=== PATIENT | male | born 1960 | race Caucasian/White ===

== ENCOUNTER 2021-05-18 14:00 | Inpatient (IN) ==
[2021-05-18] MEDS ORDERED: NYSTATIN POWDER 15GM BTL EXT STA (14:20)
[2021-05-18] MEDS ORDERED: SODIUM CHLORIDE 0.9% 1000ML 1,000 ML IV SCH (14:30)
--- NOTE | 2021-05-18 14:41 | XRay Report ---
XR chest 1V portable HISTORY: 61 years-old Male weakness acute weakness COMPARISON: None TECHNIQUE: Portable AP view of the chest FINDINGS: Cardiac silhouette is mildly enlarged. No pneumothorax, pleural effusion, airspace consolidation or o vert pulmonary edema. Degenerative changes of the shoulders and spine. IMPRESSION: No acute process. ACT 112: Negative or not required by law. The above report was generated using voice recognition software. It may contain grammatical, syntax o r spelling errors. Electronically signed by: Sean Steiner M.D. 05/18/2021 2:40 PM
[2021-05-18 15:41] LABS: Basophils # (auto) 0.04 K/uL (0-0.2); Basophils % (auto) 0.3 %; Eosinophils # (auto) 0.24 K/uL (0-0.5); Hematocrit (blood only) 43.7 % (42-52); Hemoglobin 14.5 g/dL (14.0-18.0); Immature Granulocytes # (auto) 0.03 K/uL (0.00-0.02); Immature Granulocytes % (auto) 0.2 %; Lymphocytes # (auto) 1.47 K/uL (1.2-3.4); Lymphocytes % (auto) 12.1 %; Mean Corpuscular Hgb Conc 33.2 g/dL (32-36); Mean Corpuscular Volume 90.3 fL (80-100); Mean Platelet Volume 9.1 fL (7.4-10.4); Neutrophils # (auto) 9.29 K/uL (1.4-6.5); Neutrophils % (auto) 76.4 %; Platelet Count 218 K/uL (130-400); RDW Coefficient of Variation 13.8 % (11.5-14.5); RDW Standard Deviation 45.3 fL (36.4-46.3); Red Blood Count 4.84 M/uL (4.7-6.1); White Blood Count 12.17 K/uL (4.8-10.8)
[2021-05-18 16:08] LABS: Albumin Level 3.4 gm/dl (3.4-5.0); BUN Creatinine Ratio 32.9 (10-20); Calcium 9.2 mg/dl (8.5-10.1); Creatinine Clr Calc Pharmacy 86.3 ml/min; Est GFR (African American) 109.8 ml/min; Est GFR (Non-African American) 94.7 ml/min; Magnesium 2.3 mg/dl (1.8-2.4); Potassium 4.3 mmol/L (3.5-5.1)
[2021-05-18 16:11] LABS: Albumin Globulin Ratio 0.7 (0.9-2); Bilirubin,Total 0.4 mg/dl (0.2-1); Globulin 4.9 gm/dl (2.5-4.0); Total Protein 8.3 gm/dl (6.4-8.2)
[2021-05-18] MEDS ORDERED: SODIUM CHLORIDE 0.9% 500 ML IV ONE (16:39)
[2021-05-18 17:12] LABS: Appearance Urine Cloudy (Clear); Bacteria Urine Automated 3+ (Negative); Bilirubin Urine Negative (Negative); Blood Urine 2+ (Negative); Color Urine Dark Yellow; Glucose Urine UA Negative (Negative); Ketones Urine 2+ (Negative); Leukocyte Esterase Urine 1+ (Negative); Nitrite Urine Positive (Negative); Protein Urine 2+ (Negative); RBC Urine Automated 0-4 /hpf (0-4); Specific Gravity Urine 1.031 (1.000-1.030); Urobilinogen Urine Negative (Negative); WBC Urine Automated >30 /hpf (0-5); pH Urine 5.5 (4.5-7.5)
[2021-05-18 17:41] LABS: Cast Urine Automated 0 /lpf (0-5)
[2021-05-18] MEDS ORDERED: cefTRIAXone SODIUM 1,000 MG/50 ML BAG IV STA (18:15)
[2021-05-18] MEDS ORDERED: SODIUM CHLORIDE 0.9% 1000ML 1,000 ML IV ONE (18:16)
--- NOTE | 2021-05-18 19:34 | History & Physical Report ---
Date of Service May 18, 2021 Assessment & Plan (1) UTI (urinary tract infection): Pt is 61 y/o M with PMH cerebral palsy, paroxysmal SVT, vitamin D deficiency, anemia presented to ER via EMS as found dishevelled in his home. Pt requires total care and is bed bound at baseline and his elderly father is caregiver who is acutely ill and unable to care for pt. Sister feels pt is at his baseline mental status. In ER WBC: 12, UA consistent with UTI. Normal lactate. Patient afebrile, tachy cardic 115, BP 135/85, 94% on room air In ER given 1500 mL NSS, Rocephin -Blood cultures pending -Urine cultures pending -Continue Rocephin -Gentle IVF as appears dehydrated on exam -CBC, BMP in a.m. (2) Candidal intertrigo: Rash to groin consistent with candidiasis -Nystatin powder (3) Cerebral palsy: Patient bedbound. Appears patient has not been repositioned often recently secondary to illness of his caregiver -CK pending -Bedside dysphagia screen, if fails will hold oral medication -Will have speech therapy eval to assess for any dysphagia -Rotate pt (4) Paroxysmal SVT (supraventricular tachycardia): Current sinus tachycardia rhythm -Dose Lopressor 5 mg IV now secondary to suspected missed metoprolol dose today and tachycardia with stable BP -Continue metoprolol succinate, if fails dysphagia screen plan to convert to IV Lopressor (5) Neurogenic bladder: -Continue bethanechol if passes dysphagia screen (6) Vitamin D deficiency: -Will hold vitamin D supplement for now DVT Prophylaxis -Lovenox SQ Full Code. As per discussion with pt's sister, she is not POA, Her father is. Father unable to make those decisions at this time Follows with Dr Sadler for routine care Pt was seen and care coordinated with Dr Fuller. See addendum History of Present Illness Chief Complaint: Found in house dishevelled Primary Care Provider: Dr Sadler Pt is 61 y/o M with PMH cerebral palsy, paroxysmal SVT, vitamin D deficiency, anemia presented to ER via EMS as found dishevelled in his home. History obtained from ER staff, patient's sister. Pt requires total care and is bed bound at baseline. His caregiver is his elderly father, who is also caregiver for elderly demented mother. Pt's father is acutely ill and has not been able to care for himself nor patient recently. Patient's father was being transferred via EMS and EMS had noted patient in same position, appeared disheveled and patient was transported to ER. Patient sister reports that he is on regular diet but does do better with a small bite sized soft diet. She denies any known history of choking. Reports takes medications in applesauce or pudding. She is unsure if he had medications today. She feels he is at his baseline mental status. Unable to further obtain history and ROS, FH, Surgical history secondary to patient's cognitive status. Was able to speak to patient's sister on phone however she was quick to end phone call. Patient sister reports that parents are power of corporate associate attorney over patient. In ER patient found to have excoriations and erythema to groin. WBC: 12, UA consistent with UTI. Patient afebrile, tachycardic 115, BP 135/85, 94% on room air Allergies Allergy/AdvReac Type Severity Reaction Status Date / Time No Known Allergies Allergy Unverified 05/18/21 16:19 Home Medications Medication Instructions Recorded Confirmed Type bethanechol chloride 25 mg PO AMPM 05/18/21 05/18/21 History ergocalciferol (vitamin D2) 1,250 mcg PO WK 05/18/21 05/18/21 History metoprolol succinate 50 mg PO DAILY 05/18/21 05/18/21 History trazodone 50 mg PO AMPM PRN 05/18/21 05/18/21 History Past Med/Surg History Medical History (Updated 05/18/21 @ 22:14 by Solange Ross MD) Cerebral palsy Neurogenic bladder Paroxysmal SVT (supraventricular tachycardia) Vitamin D deficiency Family History (Updated 05/18/21 @ 19:55 by Madie Acosta PA-C) Mother Dementia Social History (Updated 05/18/21 @ 19:56 by Madie Acosta PA-C) Smoking Status: Unknown if ever smoked Hx Alcohol Use: No Hx Substance Use: No Preferred Language: Mongolian Communication Ability: Unable Current Living Situation: Parent Feels Safe at Home: Yes Review of Systems Review of Systems: Unobtainable due to cognitive status Physical Exam Physical Exam: General: no apparent distress, moderately developed, moderately nourished Head: normocephalic, atraumatic Eyes: PERRL, EOM's intact, conjunctiva non-injected, + dried discharge eyes bilaterally, anicteric ENT: normal inspection external ears, nose, mucous membranes dry Neck: supple, trachea midline Lungs: Appear clear, no respiratory distress, no apparent wheezing/rhonchi/rales CV: Tachycardia at 108, regular rhythm Abd: normal BS, soft, non-tender Ext: no cyanosis, no apparent calf tenderness; bilateral lower extremities with edema Neuro: Awake, retracts to painful stimuli of lab draws, however is cooperative Skin: warm, dry, + multiple excoriations to bilateral lower extremities. + Excoriation, erythema, satellite lesions to groin Results & Data Results & Data ([facility]) Vital Signs (Past 12 Hours) Vital Signs Temp Pulse Resp BP Pulse Ox 05/18/21 18:00 105 H 22 159/93 H 92 05/18/21 17:30 105 H 17 148/87 H 93 05/18/21 17:00 105 H 16 135/88 93 05/18/21 16:30 110 H 17 125/92 93 05/18/21 16:00 109 H 20 149/95 H 93 05/18/21 15:32 109 H 19 135/98 92 05/18/21 15:05 112 H 15 161/90 H 94 05/18/21 14:25 37.2 C 117 H 18 135/85 94 05/18/21 14:19 94 05/18/21 14:06 115 H 18 135/85 Laboratory Results Short CBC 05/18/21 Range/Units 15:31 WBC 12.17 H (4.8-10.8) K/uL Hgb 14.5 (14.0-18.0) g/dL Hct 43.7 (42-52) % Plt Count 218 (130-400) K/uL BMP 05/18/21 15:31 Sodium 139 Potassium 4.3 Chloride 106 Carbon Dioxide 28 BUN 28 H Creatinine 0.85 Glucose 105 H Calcium 9.2 Liver Function 05/18/21 Range/Units 15:31 Total Bilirubin 0.4 (0.2-1) mg/dl AST 23 (15-37) U/L ALT 20 (12-78) U/L Alkaline Phosphatase 79 (45-117) U/L Albumin 3.4 (3.4-5.0) gm/dl Urine 05/18/21 Range/Units 17:00 Urine Color Dark Yellow Urine Appearance Cloudy A (Clear) Urine pH 5.5 (4.5-7.5) Ur Specific [place] 1.031 H (1.000-1.030) Urine Protein 2+ H (Negative) Urine Glucose (UA) Negative (Negative) Diagnostic Findings Chest X-Ray 05/18/21 14:19 XR chest 1V portable HISTORY: 61 years-old Male weakness acute weakness COMPARISON: None TECHNIQUE: Portable AP view of the chest FINDINGS: Cardiac silhouette is mildly enlarged. No pneumothorax, pleural effusion, airspace consolidation or overt pulmonary edema. Degenerative changes of the shoulders and spine. IMPRESSION: No acute process. ACT 112: Negative or not required by law. The above report was generated using voice recognition software. It may contain grammatical, syntax or spelling errors. Electronically signed by: Sean Steiner M.D. 05/18/2021 2:40 PM ECG Rate (beats per minute): 115 Rhythm: sinus tachycardia Supervising Physician Co-Signing Physician Notes Care coordinated with Madie Acosta PA-C. Agree with above note. Patient seen and examined. Please refer to her notes for full details. Vital signs reviewed. Physical exam: General exam: drowsy. Not in acute distress. CVS: S1 and S2 heard, regular rate and rhythm, no murmurs. RS: Clear to auscultation, no wheezing or crackles. ABD: Soft, bowel sounds present, nontender, no distention. FOREIGN STUDENT ADVISER: Drowsy. EXT: No edema, no erythema. Labs: Reviewed. Assessment and plan: 61M with hx of cerebral palsy, bed bound, father who takes care of the patinet is sick in the hospital and ems also found the patinet to be dishevelled and brought to Er. Patient is drowsy and could not get any history. Please review Madie Acosta PA-C h and p for full history. UTI on rocephin follow cultures possible cellulitis of lower extremity rocephin will follow response Hx of SVT on toprol xl Other diagnosis and plan of care as per Madie Acosta PA-C. Evans morrissey MD.
[2021-05-18] MEDS ORDERED: METOPROLOL TARTRATE 1 MG/ML VIAL IV STA (19:56)
--- NOTE | 2021-05-18 21:51 | Emergency Department Note ---
History of Present Illness General Chief complaint: Illness Stated complaint: no meds last few days Time Seen by Provider: 05/18/21 14:12 Source: family (Sister), EMS and RN notes reviewed Mode of arrival: EMS Limitations: physical limitation (Nonverbal, intellectual disability) History of Present Illness Provider complaint: Inability to care, poor living conditions Patient is a 61-year-old male who presents to the emergency department by EMS with complaints of poor living conditions. EMS was called by the patient's sister who arrived at the home after receiving a call from the neighbor. The family is male had not been collected nor have the lawn been mowed in several days, which is very unusual. The daughter found the patient's father weak and unable to get out of bed. He is the patient's primary caregiver as the patient is nonverbal and completely bedbound. Patient's sister has suspicion that he h as not had his medications in several days. Home Medications Medication Instructions Recorded Confirmed Type bethanechol chloride 25 mg PO AMPM 05/18/21 05/18/21 History ergocalciferol (vitamin D2) 1,250 mcg PO WK 05/18/21 05/18/21 History metoprolol succinate 50 mg PO DAILY 05/18/21 05/18/21 History trazodone 50 mg PO AMPM PRN 05/18/21 05/18/21 History Allergies Allergy/AdvReac Type Severity Reaction Status Date / Time No Known Allergies Allergy Unverified 05/18/21 16:19 Past Med/Surg History Medical History (Updated 05/18/21 @ 22:14 by Solange Ross MD) Cerebral palsy Neurogenic bladder Paroxysmal SVT (supraventricular tachycardia) Vitamin D deficiency Family History (Updated 05/18/21 @ 19:55 by Madie Acosta PA-C) Mother Dementia Social History (Updated 05/18/21 @ 19:56 by Madie Acosta PA-C) Smoking Status: Unknown if ever smoked Hx Alcohol Use: No Hx Substance Use: No Preferred Language: [place] Review of Systems Unobtainable due to cognitive status Physical Exam Vital Signs Vital Signs - 24 hr 05/18/21 14:06 05/18/21 14:19 05/18/21 14:25 Temperature 37.2 C Temperature Source Oral Pulse Rate 115 H 117 H Pulse Rate from SpO2 Sensor Respiratory Rate 18 18 Respiratory Effort / Characteristics Non-Labored Spontaneous Respiratory Depth Normal Respiratory Pattern Regular Blood Pressure 135/85 135/85 Blood Pressure Mean 101 101 Pulse Oximetry 94 94 Oxygen Delivery Method Room Air Room Air Sepsis Recent Fever Within 48 Hours No Sepsis New/Unexplained Change in Mental Status No Sepsis Action Taken by Nursing No Action Required 05/18/21 15:05 05/18/21 15:32 05/18/21 16:00 Temperature Temperature Source Pulse Rate 112 H 109 H 109 H Pulse Rate from SpO2 Sensor 113 H 111 H 110 H Respiratory Rate 15 19 20 Respiratory Effort / Characteristics Respiratory Depth Respiratory Pattern Blood Pressure 161/90 H 135/98 149/95 H Blood Pressure Mean 113 110 113 Pulse Oximetry 94 92 93 Oxygen Delivery Method Sepsis Recent Fever Within 48 Hours Sepsis New/Unexplained Change in Mental Status Sepsis Action Taken by Nursing 05/18/21 16:30 05/18/21 17:00 05/18/21 17:30 Temperature Temperature Source Pulse Rate 110 H 105 H 105 H Pulse Rate from SpO2 Sensor 110 H 105 H 106 H Respiratory Rate 17 16 17 Respiratory Effort / Characteristics Respiratory Depth Respiratory Pattern Blood Pressure 125/92 135/88 148/87 H Blood Pressure Mean 103 103 107 Pulse Oximetry 93 93 93 Oxygen Delivery Method Sepsis Recent Fever Within 48 Hours Sepsis New/Unexplained Change in Mental Status Sepsis Action Taken by Nursing 05/18/21 18:00 05/18/21 18:30 05/18/21 19:00 Temperature Temperature Source Pulse Rate 105 H 100 H 104 H Pulse Rate from SpO2 Sensor 106 H 100 H 101 H Respiratory Rate 22 17 13 Respiratory Effort / Characteristics Respiratory Depth Respiratory Pattern Blood Pressure 159/93 H 123/81 120/80 Blood Pressure Mean 115 95 93 Pulse Oximetry 92 95 94 Oxygen Delivery Method Sepsis Recent Fever Within 48 Hours Sepsis New/Unexplained Change in Mental Status Sepsis Action Taken by Nursing 05/18/21 19:30 05/18/21 20:00 05/18/21 20:30 Temperature Temperature Source Pulse Rate 102 H 99 H 101 H Pulse Rate from SpO2 Sensor 102 H 100 H 100 H Respiratory Rate 16 14 9 L Respiratory Effort / Characteristics Respiratory Depth Respiratory Pattern Blood Pressure 136/84 137/84 126/86 Blood Pressure Mean 101 101 99 Pulse Oximetry 95 94 93 Oxygen Delivery Method Sepsis Recent Fever Within 48 Hours Sepsis New/Unexplained Change in Mental Status Sepsis Action Taken by Nursing 05/18/21 21:15 Temperature Temperature Source Pulse Rate 100 H Pulse Rate from SpO2 Sensor Respiratory Rate Respiratory Effort / Characteristics Respiratory Depth Respiratory Pattern Blood Pressure 134/80 Blood Pressure Mean Pulse Oximetry Oxygen Delivery Method Sepsis Recent Fever Within 48 Hours Sepsis New/Unexplained Change in Mental Status Sepsis Action Taken by Nursing Vital signs reviewed. General: Chronically ill appearing 61yo male, in no significant distress. HEENT: No scleral icterus, PERRLA, neck supple. Atraumatic. Cardiovascular: Regular rate and rhythm, no extra sounds. Pulmonary: Clear to auscultation bilaterally, normal work of breathing. Abdomen: Soft, nontender, nondistended, positive bowel sounds. Musculoskeletal: Atraumatic, minimal peripheral edema. Neurologic: Patient awake alert and oriented x 3 Skin: Warm, dry, no rash Course Administered Medications Sodium Chloride (Nss 1000ml) 1,000 mls @ 125 mls/hr IV .Q8H GWEN Stop: 05/18/21 22:29 Last Infusion: 05/18/21 17:42 Dose: 0 mls/hr Documented by: [id number] Admin: 05/18/21 15:07 Dose: 125 mls/hr Documented by: [id number] Discontinued Medications Sodium Chloride (Nss) 500 mls @ 999 mls/hr IV .Q31M ONE Stop: 05/18/21 17:09 Last Infusion: 05/18/21 18:22 Dose: 0 mls/hr Documented by: [id number] Admin: 05/18/21 17:42 Dose: 999 mls/hr Documented by: [id number] Ceftriaxone Sodium (Rocephin) 1,000 mg in 50 mls @ 100 mls/hr IV NOW STA Stop: 05/18/21 18:44 Last Admin: 05/18/21 19:44 Dose: 100 mls/hr Documented by: [id number] Sodium Chloride (Nss 1000ml) 1,000 mls @ 999 mls/hr IV .Q1H1M ONE Stop: 05/18/21 19:16 Last Admin: 05/18/21 18:26 Dose: 999 mls/hr Documented by: [id number] Metoprolol Tartrate (Metoprolol Tartrate 1 Mg/Ml Vial) 5 mg IV NOW STA Stop: 05/18/21 19:57 Last Admin: 05/18/21 21:15 Dose: 5 mg Documented by: [id number] Nystatin (Nystatin Powder 15gm Btl) 1 appln EXT NOW STA Stop: 05/18/21 14:21 Last Admin: 05/18/21 16:40 Dose: 1 appln Documented by: [id number] Medical Decision Making Differential Diagnosis Infection, dehydration, metabolic abnormality, hypo/hyperglycemia, electrolyte disturbance, anemia, hypoxia, cardiac sources, intracerebral event, toxicologic, neurologic, as well as other pathologies. Medical Records Attestation: I reviewed the patient's medical records. Home Medications Current Medication List: was personally reviewed by me Laboratory Data Attestation: I reviewed the patient's lab results. Result diagrams: 05/18/21 15:31 05/18/21 15:31 Lab Results 05/18/21 05/18/21 05/18/21 Range/Units 15:31 15:31 15:31 WBC 12.17 H (4.8-10.8) K/uL RBC 4.84 (4.7-6.1) M/uL Hgb 14.5 (14.0-18.0) g/dL Hct 43.7 (42-52) % MCV 90.3 (80-100) fL MCH 30.0 (25-34) pg MCHC 33.2 (32-36) g/dL RDW Std Deviation 45.3 (36.4-46.3) fL RDW Coeff of Ther[place] 13.8 (11.5-14.5) % Plt Count 218 (130-400) K/uL MPV 9.1 (7.4-10.4) fL Immature Gran % (Auto) 0.2 % Neut % (Auto) 76.4 % Lymph % (Auto) 12.1 % [place] % (Auto) 9.0 % Eos % (Auto) 2.0 % Baso % (Auto) 0.3 % Neut # (Auto) 9.29 H (1.4-6.5) K/uL Lymph # (Auto) 1.47 (1.2-3.4) K/uL [place] # (Auto) 1.10 H (0.11-0.59) K/uL Eos # (Auto) 0.24 (0-0.5) K/uL Baso # (Auto) 0.04 (0-0.2) K/uL Immature Gran # (Auto) 0.03 H (0.00-0.02) K/uL Sodium 139 (136-145) mmol/L Potassium 4.3 (3.5-5.1) mmol/L Chloride 106 (98-107) mmol/L Carbon Dioxide 28 (21-32) mmol/L Anion Gap 5.0 (3-11) BUN 28 H (7-18) mg/dl Creatinine 0.85 (0.6-1.4) mg/dl Est Cr Clr Drug Dosing 86.3 ml/min Est GFR ( Amer) 109.8 ml/min Est GFR (Non-Af Amer) 94.7 ml/min BUN/Creatinine Ratio 32.9 H (10-20) Glucose 105 H (70-99) mg/dl Lactate 2.0 (0.4-2.0) mmol/L Calcium 9.2 (8.5-10.1) mg/dl Magnesium 2.3 (1.8-2.4) mg/dl Total Bilirubin 0.4 (0.2-1) mg/dl AST 23 (15-37) U/L ALT 20 (12-78) U/L Alkaline Phosphatase 79 (45-117) U/L Total Creatine Kinase (39-308) U/L Total Protein 8.3 H (6.4-8.2) gm/dl Albumin 3.4 (3.4-5.0) gm/dl Globulin 4.9 H (2.5-4.0) gm/dl Albumin/Globulin Ratio 0.7 L (0.9-2) Urine Color Urine Appearance (Clear) Urine pH (4.5-7.5) Ur Specific [place] (1.000-1.030) Urine Protein (Negative) Urine Glucose (UA) (Negative) Urine Ketones (Negative) Urine Blood (Negative) Urine Nitrite (Negative) Urine Bilirubin (Negative) Urine Urobilinogen (Negative) Ur Leukocyte Esterase (Negative) Urine WBC (Auto) (0-5) /hpf Urine RBC (Auto) (0-4) /hpf U Hyaline Cast (Auto) (0-5) /lpf U Epithel Cells (Auto) (0-5) /lpf Urine Bacteria (Auto) (Negative) COVID-19 Eval Order SARS-CoV-2 (PCR) (Negative) 05/18/21 05/18/21 05/18/21 Range/Units 15:31 17:00 18:06 WBC (4.8-10.8) K/uL RBC (4.7-6.1) M/uL Hgb (14.0-18.0) g/dL Hct (42-52) % MCV (80-100) fL MCH (25-34) pg MCHC (32-36) g/dL RDW Std Deviation (36.4-46.3) fL RDW Coeff of Theron (11.5-14.5) % Plt Count (130-400) K/uL MPV (7.4-10.4) fL Immature Gran % (Auto) % Neut % (Auto) % Lymph % (Auto) % [place] % (Auto) % Eos % (Auto) % Baso % (Auto) % Neut # (Auto) (1.4-6.5) K/uL Lymph # (Auto) (1.2-3.4) K/uL [place] # (Auto) (0.11-0.59) K/uL Eos # (Auto) (0-0.5) K/uL Baso # (Auto) (0-0.2) K/uL Immature Gran # (Auto) (0.00-0.02) K/uL Sodium (136-145) mmol/L Potassium (3.5-5.1) mmol/L Chloride (98-107) mmol/L Carbon Dioxide (21-32) mmol/L Anion Gap (3-11) BUN (7-18) mg/dl Creatinine (0.6-1.4) mg/dl Est Cr Clr Drug Dosing ml/min Est GFR ( Amer) ml/min Est GFR (Non-Af Amer) ml/min BUN/Creatinine Ratio (10-20) Glucose (70-99) mg/dl Lactate (0.4-2.0) mmol/L Calcium (8.5-10.1) mg/dl Magnesium (1.8-2.4) mg/dl Total Bilirubin (0.2-1) mg/dl AST (15-37) U/L ALT (12-78) U/L Alkaline Phosphatase (45-117) U/L Total Creatine Kinase 447 H (39-308) U/L Total Protein (6.4-8.2) gm/dl Albumin (3.4-5.0) gm/dl Globulin (2.5-4.0) gm/dl Albumin/Globulin Ratio (0.9-2) Urine Color Dark Yellow Urine Appearance Cloudy A (Clear) Urine pH 5.5 (4.5-7.5) Ur Specific [place] 1.031 H (1.000-1.030) Urine Protein 2+ H (Negative) Urine Glucose (UA) Negative (Negative) Urine Ketones 2+ H (Negative) Urine Blood 2+ H (Negative) Urine Nitrite Positive A (Negative) Urine Bilirubin Negative (Negative) Urine Urobilinogen Negative (Negative) Ur Leukocyte Esterase 1+ H (Negative) Urine WBC (Auto) >30 H (0-5) /hpf Urine RBC (Auto) 0-4 (0-4) /hpf U Hyaline Cast (Auto) 0 (0-5) /lpf U Epithel Cells (Auto) 10-20 H (0-5) /lpf Urine Bacteria (Auto) 3+ H (Negative) COVID-19 Eval Order Covid19 at [facility] SARS-CoV-2 (PCR) (Negative) 05/18/21 Range/Units 18:06 WBC (4.8-10.8) K/uL RBC (4.7-6.1) M/uL Hgb (14.0-18.0) g/dL Hct (42-52) % MCV (80-100) fL MCH (25-34) pg MCHC (32-36) g/dL RDW Std Deviation (36.4-46.3) fL RDW Coeff of Theron (11.5-14.5) % Plt Count (130-400) K/uL MPV (7.4-10.4) fL Immature Gran % (Auto) % Neut % (Auto) % Lymph % (Auto) % [place] % (Auto) % Eos % (Auto) % Baso % (Auto) % Neut # (Auto) (1.4-6.5) K/uL Lymph # (Auto) (1.2-3.4) K/uL [place] # (Auto) (0.11-0.59) K/uL Eos # (Auto) (0-0.5) K/uL Baso # (Auto) (0-0.2) K/uL Immature Gran # (Auto) (0.00-0.02) K/uL Sodium (136-145) mmol/L Potassium (3.5-5.1) mmol/L Chloride (98-107) mmol/L Carbon Dioxide (21-32) mmol/L Anion Gap (3-11) BUN (7-18) mg/dl Creatinine (0.6-1.4) mg/dl Est Cr Clr Drug Dosing ml/min Est GFR ( Amer) ml/min Est GFR (Non-Af Amer) ml/min BUN/Creatinine Ratio (10-20) Glucose (70-99) mg/dl Lactate (0.4-2.0) mmol/L Calcium (8.5-10.1) mg/dl Magnesium (1.8-2.4) mg/dl Total Bilirubin (0.2-1) mg/dl AST (15-37) U/L ALT (12-78) U/L Alkaline Phosphatase (45-117) U/L Total Creatine Kinase (39-308) U/L Total Protein (6.4-8.2) gm/dl Albumin (3.4-5.0) gm/dl Globulin (2.5-4.0) gm/dl Albumin/Globulin Ratio (0.9-2) Urine Color Urine Appearance (Clear) Urine pH (4.5-7.5) Ur Specific [place] (1.000-1.030) Urine Protein (Negative) Urine Glucose (UA) (Negative) Urine Ketones (Negative) Urine Blood (Negative) Urine Nitrite (Negative) Urine Bilirubin (Negative) Urine Urobilinogen (Negative) Ur Leukocyte Esterase (Negative) Urine WBC (Auto) (0-5) /hpf Urine RBC (Auto) (0-4) /hpf U Hyaline Cast (Auto) (0-5) /lpf U Epithel Cells (Auto) (0-5) /lpf Urine Bacteria (Auto) (Negative) COVID-19 Eval Order SARS-CoV-2 (PCR) NEGATIVE (Negative) Imaging Data Radiologist's Impression: Chest X-Ray 05/18/21 14:19 XR chest 1V portable HISTORY: 61 years-old Male weakness acute weakness COMPARISON: None TECHNIQUE: Portable AP view of the chest FINDINGS: Cardiac silhouette is mildly enlarged. No pneumothorax, pleural effusion, airspace consolidation or overt pulmonary edema. Degenerative changes of the shoulders and spine. IMPRESSION: No acute process. ACT 112: Negative or not required by law. The above report was generated using voice recognition software. It may contain grammatical, syntax or spelling errors. Electronically signed by: Sean Steiner M.D. 05/18/2021 2:40 PM Blood Pressure Blood Pressure Findings: Normal blood pressure Blood Pressure Disposition: Referred to patients primary care provider MDM Narrative This patient was evaluated and appeared to be in no significant distress. He is chronically debilitated and nonverbal thus history taking is difficult. IV access was obtained and laboratory work was drawn. Patient was hydrated with normal saline solution. An order for cardiac monitoring was placed and the patient is noted to be in sinus tachycardia at 117 bpm. Patient is noted to have an excoriated inguinal region with yeast dermatitis of the skin folds on the legs. UA is indicative of infection patient was medicated with IV ceftriaxone. Case management was consulted. Respite care was attempted through the office of aging however unsuccessful on this Wednesday evening. Patient meets criteria for hospitalization based on elevated WBC, dehydration and UTI. He will require further office of aging involvement and likely half-way placement after my conversation with patient's daughter. Patient's mother who suffers from dementia has been placed in respite care. Patient's father has been hospitalized for medical issues. Impression & Plan Cerebral palsy, UTI (urinary tract infection), Candidal intertrigo Discharge Plan Visit Data Chief Complaint: Illness Stated Complaint: no meds last few days ED Provider: Solange Ross Discharge Problem: Cerebral palsy, UTI (urinary tract infection), Candidal intertrigo Forms Stand Alone Forms: [employer] Prescriptions Prescriptions: No Action trazodone 50 mg tablet 50 mg PO AMPM PRN (Reason: Sleep) RF: 0 metoprolol succinate 50 mg tablet extended release 24 hr 50 mg PO DAILY RF: 0 bethanechol chloride 25 mg tablet 25 mg PO AMPM RF: 0 ergocalciferol (vitamin D2) 1,250 mcg (50,000 unit) capsule 1,250 mcg PO WK RF: 0 Discharge Problem: Cerebral palsy Qualifiers: Cerebral palsy type: unspecified type Qualified Code(s): G80.9 - Cerebral palsy, unspecified UTI (urinary tract infection) Qualifiers: Urinary tract infection type: acute cystitis Hematuria presence: without hematuria Qualified Code(s): N30.00 - Acute cystitis without hematuria
[2021-05-19] MEDS ORDERED: NYSTATIN POWDER 15GM BTL EXT PRN (00:47)
[2021-05-19] MEDS ORDERED: traZODone HCL 50 MG TAB PO PRN (00:47)
[2021-05-19] MEDS ORDERED: ACETAMINOPHEN 325 MG TAB PO PRN (00:47)
[2021-05-19] MEDS ORDERED: SODIUM CHLORIDE 0.9% 1000ML 1,000 ML IV SCH (00:47)
[2021-05-19] MEDS: BETHANECHOL CHL 25 MG TAB PO SCH ×3 (01:35→21:56)
[2021-05-19] MEDS: ENOXAPARIN INJ 40 MG/0.4 ML SYR SQ SCH (06:27)
[2021-05-19 07:39] LABS: Basophils # (auto) 0.04 K/uL (0-0.2); Basophils % (auto) 0.4 %; Eosinophils # (auto) 0.44 K/uL (0-0.5); Eosinophils % (auto) 4.6 %; Hematocrit (blood only) 38.9 % (42-52); Hemoglobin 12.6 g/dL (14.0-18.0); Immature Granulocytes # (auto) 0.02 K/uL (0.00-0.02); Immature Granulocytes % (auto) 0.2 %; Lymphocytes # (auto) 1.08 K/uL (1.2-3.4); Lymphocytes % (auto) 11.4 %; Mean Corpuscular Hemoglobin 29.9 pg (25-34); Mean Corpuscular Hgb Conc 32.4 g/dL (32-36); Mean Corpuscular Volume 92.4 fL (80-100); Mean Platelet Volume 8.9 fL (7.4-10.4); Monocytes # (auto) 0.77 K/uL (0.11-0.59); Monocytes % (auto) 8.1 %; Neutrophils # (auto) 7.14 K/uL (1.4-6.5); Neutrophils % (auto) 75.3 %; Platelet Count 224 K/uL (130-400); RDW Coefficient of Variation 13.8 % (11.5-14.5); RDW Standard Deviation 46.9 fL (36.4-46.3); Red Blood Count 4.21 M/uL (4.7-6.1); White Blood Count 9.49 K/uL (4.8-10.8)
[2021-05-19 08:12] LABS: BUN Creatinine Ratio 33.7 (10-20); Calcium 8.5 mg/dl (8.5-10.1); Creatinine Clr Calc Pharmacy 111.1 ml/min; Est GFR (African American) 121.8 ml/min; Est GFR (Non-African American) 105.1 ml/min; Potassium 3.8 mmol/L (3.5-5.1)
[2021-05-19] MEDS: cefTRIAXone SODIUM 1,000 MG in DEXTROSE 5% 50 ML IV SCH (08:50)
[2021-05-19] MEDS: METOPROLOL SUCC 50MG EXT REL TAB PO SCH (08:56)
--- NOTE | 2021-05-19 13:43 | Hospitalist Progress Note ---
Date of Service May 19, 2021 Assessment & Plan (1) UTI (urinary tract infection): Pt is 61 y/o M with PMH cerebral palsy, paroxysmal SVT, vitamin D deficiency, anemia presented to ER via EMS as found dishevelled in his home. Pt requires total care and is bed bound at baseline and his elderly father is caregiver who is acutely ill and unable to care for pt. Sister feels pt is at his baseline mental status. In ER WBC: 12, UA consistent with UTI. Normal lactate. Patient afebrile, tachy cardic 115, BP 135/85, 94% on room air In ER given 1500 mL NSS, Rocephin Blood cultures pending Urine cultures is growing gram-negative bacilli, further identification and sensitivity pending Continue Rocephin Gentle IVF as appears dehydrated on exam Remains stable (2) Candidal intertrigo: Rash to groin consistent with candidiasis -Nystatin powder (3) Cerebral palsy: Bedbound secondary to functional quadriplegia Patient bedbound. Appears patient has not been repositioned often recently secondary to illness of his caregiver -CK pending-has not been elevated -Bedside dysphagia screen, if fails will hold oral medication -Will have speech therapy eval to assess for any dysphagia -Change frequent posture (4) Paroxysmal SVT (supraventricular tachycardia): Current sinus tachycardia rhythm -Dose Lopressor 5 mg IV now secondary to suspected missed metoprolol dose today and tachycardia with stable BP -Continue metoprolol succinate, if fails dysphagia screen plan to convert to IV Lopressor -Remains in sinus rhythm and rate is just around 100/min -We will monitor (5) Neurogenic bladder: -Continue bethanechol if passes dysphagia screen (6) Vitamin D deficiency: -Will hold vitamin D supplement for now DVT Prophylaxis -Lovenox SQ Full Code. As per discussion with pt's sister, she is not POA, Her father is. Father unable to make those decisions at this time Follows with Dr Sadler for routine care Admission and Anticipated Discharge Date Admission Date: May 18, 2021 Subjective 05/19/2021 The patient was seen and examined in medical telemetry unit He has functional quadriplegia with cerebral palsy and is admitted yesterday with disheveled condition at home Noted to have UTI He is nonverbal remains stable Review of Systems Review of Systems: Unobtainable due to mental health condition Physical Exam Physical Exam: Lying in bed comfortably Constitutional: + ill appearing and average body habitus ENMT: external ear and nose normal, oropharynx normal Neck: trachea midline, no thyromegaly Respiratory: no respiratory distress Auscultation: + diminished lung sounds and + crackles (Minimal crackles at the bases) Cardiovascular: Rate/Rhythm: regular rate and regular rhythm Heart Sounds: no murmur Extremities: + edema (1+ leg edema bilaterally) Gastrointestinal (Abdomen): Inspection/Auscultation: normal bowel sounds; abdomen not distended Percussion/Palpation: abdomen soft Musculoskeletal: Has flexural deformities involving the joints Neurologic: Alert and awake. Nonverbal and has functional quadriplegia secondary to cerebral palsy Lymphatic: no cervical or axillary lymphadenopathy Results & Data Results & Data ([facility]) Vital Signs (Past 12 Hours) Vital Signs Temp Pulse Pulse Resp BP Pulse Ox 05/19/21 11:00 36.6 C 100 H 16 110/71 95 05/19/21 10:38 106 H 05/19/21 07:00 36.7 C 105 H 18 125/82 95 05/19/21 04:00 37.4 C 100 H 18 130/86 93 05/19/21 03:23 104 H Laboratory Results Short CBC 05/18/21 05/19/21 Range/Units 15:31 07:19 WBC 12.17 H 9.49 (4.8-10.8) K/uL Hgb 14.5 12.6 L (14.0-18.0) g/dL Hct 43.7 38.9 L (42-52) % Plt Count 218 224 (130-400) K/uL BMP 05/18/21 05/19/21 15:31 07:19 Sodium 139 145 Potassium 4.3 3.8 Chloride 106 113 H Carbon Dioxide 28 26 BUN 28 H 22 H Creatinine 0.85 0.66 Glucose 105 H 88 Calcium 9.2 8.5 Cardiac Enzymes 05/18/21 Range/Units 15:31 Total Creatine Kinase 447 H (39-308) U/L Liver Function 05/18/21 Range/Units 15:31 Total Bilirubin 0.4 (0.2-1) mg/dl AST 23 (15-37) U/L ALT 20 (12-78) U/L Alkaline Phosphatase 79 (45-117) U/L Albumin 3.4 (3.4-5.0) gm/dl Urine 05/18/21 Range/Units 17:00 Urine Color Dark Yellow Urine Appearance Cloudy A (Clear) Urine pH 5.5 (4.5-7.5) Ur Specific [place] 1.031 H (1.000-1.030) Urine Protein 2+ H (Negative) Urine Glucose (UA) Negative (Negative) Medications Administered Current Inpatient Medications Acetaminophen (Acetaminophen 325 Mg Tab) 650 mg PO Q4H PRN PRN Reason: Pain or Fever Stop: 06/18/21 00:46 Bethanechol Chloride (Bethanechol Chl 25 Mg Tab) 25 mg PO BID [facility] Stop: 06/18/21 00:46 Last Admin: 05/19/21 08:56 Dose: 25 mg Documented by: Enoxaparin Sodium (Enoxaparin Inj 40 Mg/0.4 Ml Syr) 40 mg SQ Q24H [facility] Stop: 06/18/21 05:59 Last Admin: 05/19/21 06:27 Dose: 40 mg Documented by: Ceftriaxone Sodium 1,000 mg/ (Dextrose) 50 mls @ 100 mls/hr IV Q24H [facility]; Protocol Stop: 05/24/21 07:59 Last Infusion: 05/19/21 09:25 Dose: Infused Documented by: Metoprolol Succinate (Metoprolol Succ 50mg Ext Rel Tab) 50 mg PO DAILY [facility] Stop: 06/18/21 08:59 Last Admin: 05/19/21 08:56 Dose: 50 mg Documented by: Nystatin (Nystatin Powder 15gm Btl) 1 appln EXT TID PRN PRN Reason: affected skin folds Stop: 06/18/21 00:46 Last Admin: 05/19/21 08:56 Dose: 1 appln Documented by: Trazodone HCl (Trazodone Hcl 50 Mg Tab) 50 mg PO BID PRN PRN Reason: Sleep Stop: 06/18/21 00:46 (1) UTI (urinary tract infection) Hematuria presence: without hematuria Urinary tract infection type: acute cystitis Qualified Code(s): N30.00 - Acute cystitis without hematuria (2) Cerebral palsy Cerebral palsy type: unspecified type Qualified Code(s): G80.9 - Cerebral palsy, unspecified
--- NOTE | 2021-05-19 17:36 | Electrocardiogram Report ---
Test Reason : Blood Pressure : / mmHG Vent. Rate : 115 BPM Atrial Rate : 115 BPM P-R Int : 124 ms QRS Dur : 082 ms QT Int : 338 ms P-R-T Axes : 064 059 061 degrees QTc Int : 467 ms Sinus tachycardia Otherwise normal ECG No previous ECGs available Confirmed by Guillermo Gloria ([id number]) on 05/19/2021 5:35:57 PM Referred By: REFERRED SELF Confirmed By:David Gloria
[2021-05-20] MEDS: ENOXAPARIN INJ 40 MG/0.4 ML SYR SQ SCH (05:24)
[2021-05-20 07:28] LABS: Basophils # (auto) 0.05 K/uL (0-0.2); Basophils % (auto) 0.6 %; Eosinophils # (auto) 0.59 K/uL (0-0.5); Eosinophils % (auto) 7.4 %; Hematocrit (blood only) 36.2 % (42-52); Hemoglobin 11.7 g/dL (14.0-18.0); Immature Granulocytes # (auto) 0.01 K/uL (0.00-0.02); Immature Granulocytes % (auto) 0.1 %; Lymphocytes # (auto) 1.44 K/uL (1.2-3.4); Lymphocytes % (auto) 18.1 %; Mean Corpuscular Hemoglobin 29.3 pg (25-34); Mean Corpuscular Hgb Conc 32.3 g/dL (32-36); Mean Corpuscular Volume 90.5 fL (80-100); Mean Platelet Volume 8.8 fL (7.4-10.4); Monocytes # (auto) 0.86 K/uL (0.11-0.59); Monocytes % (auto) 10.8 %; Neutrophils # (auto) 5.01 K/uL (1.4-6.5); Platelet Count 211 K/uL (130-400); RDW Coefficient of Variation 13.8 % (11.5-14.5); RDW Standard Deviation 45.6 fL (36.4-46.3); White Blood Count 7.96 K/uL (4.8-10.8)
[2021-05-20 07:56] LABS: BUN Creatinine Ratio 38.7 (10-20); Calcium 8.3 mg/dl (8.5-10.1); Creatinine Clr Calc Pharmacy 145.8 ml/min; Est GFR (African American) 137.7 ml/min; Est GFR (Non-African American) 118.8 ml/min; Magnesium 2.2 mg/dl (1.8-2.4); Potassium 3.3 mmol/L (3.5-5.1)
[2021-05-20 07:57] LABS: Phosphorus 2.4 mg/dl (2.5-4.9)
[2021-05-20] MEDS ORDERED: POTASSIUM PHOS 3 MMOL/1 ML INFUSION IV STA (08:29)
[2021-05-20] MEDS ORDERED: POTASSIUM PHOSPHATE 24 MMOL in SODIUM CHLORIDE 0.9% 500 ML IV STA (08:34)
[2021-05-20] MEDS: SODIUM CHLORIDE 0.9% 1000ML 1,000 ML IV SCH ×2 (08:43→20:02)
[2021-05-20] MEDS: METOPROLOL SUCC 50MG EXT REL TAB PO SCH (08:44)
[2021-05-20] MEDS: cefTRIAXone SODIUM 1,000 MG in DEXTROSE 5% 50 ML IV SCH (08:44)
[2021-05-20] MEDS: BETHANECHOL CHL 25 MG TAB PO SCH ×2 (08:44→20:20)
--- NOTE | 2021-05-20 15:18 | Hospitalist Progress Note ---
Date of Service May 20, 2021 Assessment & Plan (1) UTI (urinary tract infection): Pt is 61 y/o M with PMH cerebral palsy, paroxysmal SVT, vitamin D deficiency, anemia presented to ER via EMS as found dishevelled in his home. Pt requires total care and is bed bound at baseline and his elderly father is caregiver who is acutely ill and unable to care for pt. Sister feels pt is at his baseline mental status. In ER WBC: 12, UA consistent with UTI. Normal lactate. Patient afebrile, tachy cardic 115, BP 135/85, 94% on room air In ER given 1500 mL NSS, Rocephin Blood cultures -negative Urine cultures is growing gram-negative bacill, Citrobacter Corsetti and is pansensitive except nitrofurantoin Continue Rocephin Gentle IVF as appears dehydrated on exam Clinically better Will need placement as his caregiver, his dad is sick and admitted to this hospital (2) Candidal intertrigo: Rash to groin consistent with candidiasis -Nystatin powder (3) Cerebral palsy: Bedbound secondary to functional quadriplegia Patient bedbound. Appears patient has not been repositioned often recently secondary to illness of his caregiver -CK pending-has not been elevated -Bedside dysphagia screen, if fails will hold oral medication -Will have speech therapy eval to assess for any dysphagia -Change frequent posture (4) Paroxysmal SVT (supraventricular tachycardia): Current sinus tachycardia rhythm -Dose Lopressor 5 mg IV now secondary to suspected missed metoprolol dose today and tachycardia with stable BP -Continue metoprolol succinate, if fails dysphagia screen plan to convert to IV Lopressor -Remains in sinus rhythm and rate is just around 100/min -We will monitor (5) Neurogenic bladder: -Continue bethanechol if passes dysphagia screen (6) Vitamin D deficiency: -Will hold vitamin D supplement for now DVT Prophylaxis -Lovenox SQ Full Code. As per discussion with pt's sister, she is not POA, Her father is. Father unable to make those decisions at this time Follows with Dr Sadler for routine care Admission and Anticipated Discharge Date Admission Date: May 18, 2021 Subjective 05/19/2021 The patient was seen and examined in medical telemetry unit He has functional quadriplegia with cerebral palsy and is admitted yesterday with disheveled condition at home Noted to have UTI He is nonverbal remains stable 05/20/2021 The patient was seen and examined in medical telemetry unit He looks much better today and has been tolerating his diet He is nonverbal and remains stable in bed Review of Systems Review of Systems: Unobtainable due to cognitive status Physical Exam Physical Exam: Lying in bed comfortably Constitutional: + ill appearing and average body habitus ENMT: external ear and nose normal, oropharynx normal Neck: trachea midline, no thyromegaly Respiratory: no respiratory distress Auscultation: + diminished lung sounds and + crackles (Minimal crackles at the bases) Cardiovascular: Rate/Rhythm: regular rate and regular rhythm Heart Sounds: no murmur Extremities: + edema (1+ leg edema bilaterally) Gastrointestinal (Abdomen): Inspection/Auscultation: normal bowel sounds; abdomen not distended Percussion/Palpation: abdomen soft Neurologic: Alert and awake. Has functional quadriplegia and is nonverbal Lymphatic: no cervical or axillary lymphadenopathy Results & Data Results & Data ([facility]) Vital Signs (Past 12 Hours) Vital Signs Temp Pulse Pulse Resp BP Pulse Ox 05/20/21 11:34 36.3 C L 93 H 18 135/88 96 05/20/21 07:59 36.9 C 100 H 16 134/79 95 05/20/21 07:48 76 05/20/21 04:01 36.4 C L 91 H 18 129/84 96 Laboratory Results Short CBC 05/20/21 Range/Units 07:15 WBC 7.96 (4.8-10.8) K/uL Hgb 11.7 L (14.0-18.0) g/dL Hct 36.2 L (42-52) % Plt Count 211 (130-400) K/uL BMP 05/20/21 07:15 Sodium 145 Potassium 3.3 L Chloride 114 H Carbon Dioxide 25 BUN 19 H Creatinine 0.49 L Glucose 81 Calcium 8.3 L Medications Administered Current Inpatient Medications Acetaminophen (Acetaminophen 325 Mg Tab) 650 mg PO Q4H PRN PRN Reason: Pain or Fever Stop: 06/18/21 00:46 Bethanechol Chloride (Bethanechol Chl 25 Mg Tab) 25 mg PO BID [facility] Stop: 06/18/21 00:46 Last Admin: 05/20/21 08:44 Dose: 25 mg Documented by: Enoxaparin Sodium (Enoxaparin Inj 40 Mg/0.4 Ml Syr) 40 mg SQ Q24H [facility] Stop: 06/18/21 05:59 Last Admin: 05/20/21 05:24 Dose: 40 mg Documented by: Ceftriaxone Sodium 1,000 mg/ (Dextrose) 50 mls @ 100 mls/hr IV Q24H [facility]; Protocol Stop: 05/24/21 07:59 Last Infusion: 05/20/21 09:17 Dose: Infused Documented by: Sodium Chloride (Nss 1000ml) 1,000 mls @ 80 mls/hr IV .[id number] [facility] Stop: 05/21/21 06:59 Last Admin: 05/20/21 08:43 Dose: 80 mls/hr Documented by: Metoprolol Succinate (Metoprolol Succ 50mg Ext Rel Tab) 50 mg PO DAILY [facility] Stop: 06/18/21 08:59 Last Admin: 05/20/21 08:44 Dose: 50 mg Documented by: Nystatin (Nystatin Powder 15gm Btl) 1 appln EXT TID PRN PRN Reason: affected skin folds Stop: 06/18/21 00:46 Last Admin: 05/19/21 08:56 Dose: 1 appln Documented by: Trazodone HCl (Trazodone Hcl 50 Mg Tab) 50 mg PO BID PRN PRN Reason: Sleep Stop: 06/18/21 00:46 (1) UTI (urinary tract infection) Hematuria presence: without hematuria Urinary tract infection type: acute cystitis Qualified Code(s): N30.00 - Acute cystitis without hematuria (2) Cerebral palsy Cerebral palsy type: unspecified type Qualified Code(s): G80.9 - Cerebral palsy, unspecified
[2021-05-21] MEDS: ENOXAPARIN INJ 40 MG/0.4 ML SYR SQ SCH (05:47)
[2021-05-21] MEDS: cefTRIAXone SODIUM 1,000 MG in DEXTROSE 5% 50 ML IV SCH (09:10)
[2021-05-21] MEDS: BETHANECHOL CHL 25 MG TAB PO SCH ×2 (09:11→20:07)
[2021-05-21] MEDS: METOPROLOL SUCC 50MG EXT REL TAB PO SCH (09:11)
--- NOTE | 2021-05-21 13:23 | Discharge Summary ---
Date of Service May 21, 2021 Admission HPI Per Admitting Provider Pt is 61 y/o M with PMH cerebral palsy, paroxysmal SVT, vitamin D deficiency, anemia presented to ER via EMS as found dishevelled in his home. History obtained from ER staff, patient's sister. Pt requires total care and is bed bound at baseline. His caregiver is his elderly father, who is also caregiver for elderly demented mother. Pt's father is acutely ill and has not been able to care for himself nor patient recently. Patient's father was being transferred via EMS and EMS had noted patient in same position, appeared disheveled and patient was transported to ER. Patient sister reports that he is on regular di et but does do better with a small bite sized soft diet. She denies any known history of choking. Reports takes medications in applesauce or pudding. She is unsure if he had medications today. She feels he is at his baseline mental status. Unable to further obtain history and ROS, FH, Surgical history secondary to patient's cognitive status. Was able to speak to patient's sister on phone however she was quick to end phone call. Patient sister reports that parents are power of district attorney over patient. In ER patient found to have excoriations and erythema to groin. WBC: 12, UA consistent with UTI. Patient afebrile, tachycardic 115, BP 135/85, 94% on room air Admission Exam Per Admitting Provider General: no apparent distress, moderately developed, moderately nourished Head: normocephalic, atraumatic Eyes: PERRL, EOM's intact, conjunctiva non-injected, +dried discharge eyes bilaterally, anicteric ENT: normal inspection external ears, nose, mucous membranes dry Neck: supple, trachea midline Lungs: Appear clear, no respiratory distress, no apparent wheezing/rhonchi/rales CV: Tachycardia at 108, regular rhythm Abd: normal BS, soft, non-tender Ext: no cyanosis, no apparent calf tenderness; bilateral lower extremities with edema Neuro: Awake, retracts to painful stimuli of lab draws, however is cooperative Skin: warm, dry, + multiple excoriations to bilateral lower extremities. + Excoriation, erythema, satellite lesions to groin Principal Diagnosis (1) UTI (urinary tract infection): (2) Candidal intertrigo: (3) Cerebral palsy: (4) Paroxysmal SVT (supraventricular tachycardia): (5) Neurogenic bladder: (6) Vitamin D deficiency: Discharge Exam ROS-offers no history Physical Exam Gen-NAD, Afebrile, non verbal, contracted Head-Anicteric Sclera Neck-No JVD, No Thyromegaly, No Masses, No LAD, No Bruits Lungs-Clear to Auscultation Bilaterally, No Rales, No Rhonchi, No Wheezing, No Crepitus Chest-No S4, +S1, +S2, No S3, No Murmurs, No Rubs, No Gallops, No Ectopy Abdomen-Soft, Bowel Sounds Present, Non Tender, Non Distended, No Hepatomegaly, No Splenomegaly, No Palpable Masses, No Rebound, No Rigidity, No Guarding Musculoskeletal-Functional Quad Extremities-contracted Nuero-Functional Quad Psych-CP Discharge Data Allergies Allergy/AdvReac Type Severity Reaction Status Date / Time No Known Allergies Allergy Unverified 05/18/21 16:19 Consultations 05/18/21 18:50 ED Decision to Admit Stat Current Diagnoses Candidiasis of skin and nail (05/18/21) Vitamin D deficiency, unspecified (05/18/21) Cerebral palsy, unspecified (05/18/21) Supraventricular tachycardia (05/18/21) Acute cystitis without hematuria (05/18/21) Neuromuscular dysfunction of bladder, unspecified (05/18/21) Urinary tract infection, site not specified (05/18/21) Allergies No Known Allergies Allergy (Unverified 05/18/21 16:19) Height/Weight/Isolation Height 5 ft 8 in Weight 64.8 kg Chemistry 05/20/21 07:15 Sodium 145 Potassium 3.3 L Chloride 114 H Carbon Dioxide 25 Anion Gap 6.0 BUN 19 H Creatinine 0.49 L Glucose 81 Microbiology 05/18/21 19:38 Blood Aerobic Blood Culture - Preliminary No growth in Aerobic bottle after 48 hours. 05/18/21 19:38 Blood Anaerobic Blood Culture - Final 05/18/21 19:36 Blood Aerobic Blood Culture - Preliminary No growth in Aerobic bottle after 48 hours. 05/18/21 19:36 Blood Anaerobic Blood Culture - Preliminary No growth in Anaerobic bottle after 48 hours. 05/18/21 17:00 Urine,Straight Cath Urine Culture - Final Citrobacter koseri Hospital Course (1) UTI (urinary tract infection): Pt is 61 y/o M with PMH cerebral palsy, paroxysmal SVT, vitamin D deficiency, anemia presented to ER via EMS as found dishevelled in his home. Pt requires total care and is bed bound at baseline and his elderly father is caregiver who is acutely ill and unable to care for pt. Sister feels pt is at his baseline mental status. In ER WBC: 12, UA consistent with UTI. Normal lactate. Patient afebrile, tachycardic 115, BP 135/85, 94% on room air In ER given 1500 mL NSS, Rocephin Blood cultures -negative Urine cultures is growing gram-negative bacill, Citrobacter Corsetti and is pansensitive except nitrofurantoin Continue Rocephin Gentle IVF as appears dehydrated on exam Clinically better [place] when bed available (2) Candidal intertrigo: Rash to groin consistent with candidiasis -Nystatin powder (3) Cerebral palsy: Bedbound secondary to functional quadriplegia Patient bedbound. Appears patient has not been repositioned often recently secondary to illness of his caregiver -CK pending-has not been elevated -Bedside dysphagia screen, if fails will hold oral medication -Will have speech therapy eval to assess for any dysphagia -Change frequent posture (4) Paroxysmal SVT (supraventricular tachycardia): Current sinus tachycardia rhythm -Dose Lopressor 5 mg IV now secondary to suspected missed metoprolol dose today and tachycardia with stable BP -Continue metoprolol succinate, if fails dysphagia screen plan to convert to IV Lopressor -Remains in sinus rhythm and rate is just around 100/min -We will monitor (5) Neurogenic bladder: -Continue bethanechol if passes dysphagia screen (6) Vitamin D deficiency: -Will hold vitamin D supplement for now DVT Prophylaxis -Lovenox SQ Full Code. As per discussion with pt's sister, she is not POA, Her father is. Father unable to make those decisions at this time Follows with Dr Sadler for routine care [facility] today Total Time Total Time Spent Total Time Spent (In Minutes): 45 mins Total Time Includes: Examination of the Patient, Discharge Planning, Medication Reconciliation, Communication With Other Providers and Other Discharge Plan Discharge Items Patient Disposition: Transfer [facility] Reason For Visit: UTI Discharge Diagnosis: (1) UTI (urinary tract infection): (2) Candidal intertrigo: (3) Cerebral palsy: (4) Paroxysmal SVT (supraventricular tachycardia): (5) Neurogenic bladder: (6) Vitamin D deficiency: Condition on Discharge: Fair Health Concerns: None Activity: As commented below Activity Comment: Functional Quad Lifting: None Bathing: No limitations Exercise/Sports: None Driving/Machine Use: none Weightbearing Comment: NWB Non-emergency contact: Primary Care Provider Call non-emergency contact if: you have any medication questions Follow-up/Referrals: Gabriel Sadler [Primary Care Provider] - Diet: Regular Diet Texture: Dental soft (bite-sized) Diet Comment: Minced and Mixed Addtl Attending Provider Instructions: Wound care eval and treat Pending Studies at Discharge: No Stand-Alone Forms: [facility] Liquid X Skilled Items Patient informed of condition?: No DNR: No Discharge Level of Care: Skilled Communicable Disease: No Discharge Prognosis: Stable Lines: None Urinary Catheter: No Medications and DC Order Prescriptions: New nystatin [Nystop] 100,000 unit/gram Powder 1 applic EXT TID Qty: 15 RF: 0 cefdinir 300 mg capsule 300 mg PO Q12H 7 Days Qty: 14 RF: 0 Continued trazodone 50 mg tablet 50 mg PO AMPM PRN (Reason: Sleep) RF: 0 metoprolol succinate 50 mg tablet extended release 24 hr 50 mg PO DAILY RF: 0 bethanechol chloride 25 mg tablet 25 mg PO AMPM RF: 0 ergocalciferol (vitamin D2) 1,250 mcg (50,000 unit) capsule 1,250 mcg PO WK RF: 0 Admission Data Admit Date/Time: 05/18/21 19:25 Attending Provider: Lencho Gamboa Admit Provider: Evans Fuller Primary Care Provider: Gabriel Sadler Other Providers: Evans Fuller ; Mónica Bowens [facility] ; [facility]
--- NOTE | 2021-05-21 14:06 | Hospitalist Progress Note ---
Date of Service May 21, 2021 Assessment & Plan (1) UTI (urinary tract infection): (2) Candidal intertrigo: (3) Cerebral palsy: (4) Paroxysmal SVT (supraventricular tachycardia): (5) Neurogenic bladder: (6) Vitamin D deficiency: Plan: (1) UTI (urinary tract infection): Pt is 61 y/o M with PMH cerebral palsy, paroxysmal SVT, vitamin D deficiency, anemia presented to ER via EMS as found dishevelled in his home. Pt requires total care and is bed bound at baseline and his elderly father is caregiver who is acutely ill and unable to care for pt. Sister feels pt is at his baseline mental status. In ER WBC: 12, UA consistent with UTI. Normal lactate. Patient afebrile, tachycardic 115, BP 135/85, 94% on room air In ER given 1500 mL NSS, Rocephin Blood cultures -negative Urine cultures is growing gram-negative bacill, Citrobacter Corsetti and is pans ensitive except nitrofurantoin Continue Rocephin Gentle IVF as appears dehydrated on exam Clinically better [place] when bed available (2) Candidal intertrigo: Rash to groin consistent with candidiasis -Nystatin powder (3) Cerebral palsy: Bedbound secondary to functional quadriplegia Patient bedbound. Appears patient has not been repositioned often recently secondary to illness of his caregiver -CK pending-has not been elevated -Bedside dysphagia screen, if fails will hold oral medication -Will have speech therapy eval to assess for any dysphagia -Change frequent posture (4) Paroxysmal SVT (supraventricular tachycardia): Current sinus tachycardia rhythm -Dose Lopressor 5 mg IV now secondary to suspected missed metoprolol dose today and tachycardia with stable BP -Continue metoprolol succinate, if fails dysphagia screen plan to convert to IV Lopressor -Remains in sinus rhythm and rate is just around 100/min -We will monitor (5) Neurogenic bladder: -Continue bethanechol if passes dysphagia screen (6) Vitamin D deficiency: -Will hold vitamin D supplement for now DVT Prophylaxis -Lovenox SQ Full Code. As per discussion with pt's sister, she is not POA, Her father is. Father unable to make those decisions at this time Follows with Dr Sadler for routine [facility] Labs Checked ROS-offers no history Physical Exam Gen-NAD, Afebrile, non verbal, contracted Head-Anicteric Sclera Neck-No JVD, No Thyromegaly, No Masses, No LAD, No Bruits Lungs-Clear to Auscultation Bilaterally, No Rales, No Rhonchi, No Wheezing, No Crepitus Chest-No S4, +S1, +S2, No S3, No Murmurs, No Rubs, No Gallops, No Ectopy Abdomen-Soft, Bowel Sounds Present, Non Tender, Non Distended, No Hepatomegaly, No Splenomegaly, No Palpable Masses, No Rebound, No Rigidity, No Guarding Musculoskeletal-Functional Quad Extremities-contracted Nuero-Functional Quad Psych-CP Admission and Anticipated Discharge Date Admission Date: May 18, 2021 Results & Data Results & Data ([facility]) Vital Signs (Past 12 Hours) Vital Signs Temp Pulse Resp BP BP Pulse Ox 05/21/21 10:00 36.9 C 111 H 20 135/84 97 05/21/21 07:00 37.2 C 98 H 18 147/88 H 96 05/21/21 04:00 37.5 C 92 H 20 159/93 H 96 (1) UTI (urinary tract infection) Hematuria presence: without hematuria Urinary tract infection type: acute cystitis Qualified Code(s): N30.00 - Acute cystitis without hematuria (2) Cerebral palsy Cerebral palsy type: unspecified type Qualified Code(s): G80.9 - Cerebral palsy, unspecified
[2021-05-22] MEDS: ENOXAPARIN INJ 40 MG/0.4 ML SYR SQ SCH (05:31)
--- NOTE | 2021-05-22 07:50 | Hospitalist Progress Note ---
Date of Service May 22, 2021 Assessment & Plan (1) UTI (urinary tract infection): (2) Candidal intertrigo: (3) Cerebral palsy: (4) Paroxysmal SVT (supraventricular tachycardia): (5) Neurogenic bladder: (6) Vitamin D deficiency: Plan: (1) UTI (urinary tract infection): Pt is 61 y/o M with PMH cerebral palsy, paroxysmal SVT, vitamin D deficiency, anemia presented to ER via EMS as found dishevelled in his home. Pt requires total care and is bed bound at baseline and his elderly father is caregiver who is acutely ill and unable to care for pt. Sister feels pt is at his baseline mental status. In ER WBC: 12, UA consistent with UTI. Normal lactate. Patient afebrile, tachycardic 115, BP 135/85, 94% on room air In ER given 1500 mL NSS, Rocephin Blood cultures -negative Urine cultures is growing gram-negative bacill, Citrobacter Corsetti and is pans ensitive except nitrofurantoin Continue Rocephin Gentle IVF as appears dehydrated on exam Clinically better Juniper when bed available (2) Candidal intertrigo: Rash to groin consistent with candidiasis -Nystatin powder (3) Cerebral palsy: Bedbound secondary to functional quadriplegia Patient bedbound. Appears patient has not been repositioned often recently secondary to illness of his caregiver -CK pending-has not been elevated -Bedside dysphagia screen, if fails will hold oral medication -Will have speech therapy eval to assess for any dysphagia -Change frequent posture (4) Paroxysmal SVT (supraventricular tachycardia): Current sinus tachycardia rhythm -Dose Lopressor 5 mg IV now secondary to suspected missed metoprolol dose today and tachycardia with stable BP -Continue metoprolol succinate, if fails dysphagia screen plan to convert to IV Lopressor -Remains in sinus rhythm and rate is just around 100/min -We will monitor (5) Neurogenic bladder: -Continue bethanechol if passes dysphagia screen (6) Vitamin D deficiency: -Will hold vitamin D supplement for now DVT Prophylaxis -Lovenox SQ Full Code. As per discussion with pt's sister, she is not POA, Her father is. Father unable to make those decisions at this time Follows with Dr Sadler for routine care [facility] when accepted Labs Checked ROS-offers no history Physical Exam Gen-NAD, Afebrile, non verbal, contracted Head-Anicteric Sclera Neck-No JVD, No Thyromegaly, No Masses, No LAD, No Bruits Lungs-Clear to Auscultation Bilaterally, No Rales, No Rhonchi, No Wheezing, No Crepitus Chest-No S4, +S1, +S2, No S3, No Murmurs, No Rubs, No Gallops, No Ectopy Abdomen-Soft, Bowel Sounds Present, Non Tender, Non Distended, No Hepatomegaly, No Splenomegaly, No Palpable Masses, No Rebound, No Rigidity, No Guarding Musculoskeletal-Functional Quad Extremities-contracted Nuero-Functional Quad Psych-CP Admission and Anticipated Discharge Date Admission Date: May 18, 2021 Results & Data Results & Data ([facility]) Vital Signs (Past 12 Hours) Vital Signs Temp Pulse Pulse Resp BP BP Pulse Ox 05/22/21 07:25 81 05/22/21 07:00 36.7 C 64 20 129/75 96 05/22/21 03:45 37.0 C 87 20 107/70 95 05/21/21 23:35 37.6 C H 96 H 20 92/71 L 96 05/21/21 22:19 88 (1) UTI (urinary tract infection) Hematuria presence: without hematuria Urinary tract infection type: acute cystitis Qualified Code(s): N30.00 - Acute cystitis without hematuria (2) Cerebral palsy Cerebral palsy type: unspecified type Qualified Code(s): G80.9 - Cerebral palsy, unspecified
[2021-05-22] MEDS: METOPROLOL SUCC 50MG EXT REL TAB PO SCH (08:07)
[2021-05-22] MEDS: cefTRIAXone SODIUM 1,000 MG in DEXTROSE 5% 50 ML IV SCH (08:07)
[2021-05-22] MEDS: BETHANECHOL CHL 25 MG TAB PO SCH ×2 (08:08→20:36)
[2021-05-22 08:20] LABS: Hematocrit (blood only) 34.6 % (42-52); Hemoglobin 11.5 g/dL (14.0-18.0); Mean Corpuscular Hgb Conc 33.2 g/dL (32-36); Mean Corpuscular Volume 90.3 fL (80-100); Mean Platelet Volume 8.6 fL (7.4-10.4); Platelet Count 227 K/uL (130-400); RDW Coefficient of Variation 13.4 % (11.5-14.5); RDW Standard Deviation 44.2 fL (36.4-46.3); Red Blood Count 3.83 M/uL (4.7-6.1); White Blood Count 8.68 K/uL (4.8-10.8)
[2021-05-22 08:55] LABS: BUN Creatinine Ratio 26.6 (10-20); Blood Urea Nitrogen 10 mg/dl (7-18); Calcium 7.8 mg/dl (8.5-10.1); Carbon Dioxide 24 mmol/L (21-32); Chloride 110 mmol/L (98-107); Creatinine Clr Calc Pharmacy 202.4 ml/min; Est GFR (African American) > 150.0 ml/min; Est GFR (Non-African American) 133.3 ml/min; Glucose 71 mg/dl (70-99); Potassium 3.2 mmol/L (3.5-5.1); Sodium 142 mmol/L (136-145)
[2021-05-23] MEDS: ENOXAPARIN INJ 40 MG/0.4 ML SYR SQ SCH (06:11)
[2021-05-23 07:56] LABS: Hematocrit (blood only) 36.5 % (42-52); Hemoglobin 12.3 g/dL (14.0-18.0); Mean Corpuscular Hemoglobin 30.1 pg (25-34); Mean Corpuscular Hgb Conc 33.7 g/dL (32-36); Mean Corpuscular Volume 89.2 fL (80-100); Mean Platelet Volume 8.7 fL (7.4-10.4); Platelet Count 258 K/uL (130-400); RDW Coefficient of Variation 13.2 % (11.5-14.5); RDW Standard Deviation 42.9 fL (36.4-46.3); Red Blood Count 4.09 M/uL (4.7-6.1); White Blood Count 10.63 K/uL (4.8-10.8)
[2021-05-23 08:34] LABS: Albumin Level 2.6 gm/dl (3.4-5.0); BUN Creatinine Ratio 31.7 (10-20); Calcium 8.2 mg/dl (8.5-10.1); Creatinine Clr Calc Pharmacy 159.3 ml/min; Est GFR (Non-African American) 120.8 ml/min; Potassium 3.4 mmol/L (3.5-5.1)
[2021-05-23 08:36] LABS: Albumin Globulin Ratio 0.7 (0.9-2); Bilirubin,Total 0.3 mg/dl (0.2-1); Total Protein 6.6 gm/dl (6.4-8.2)
[2021-05-23] MEDS: METOPROLOL SUCC 50MG EXT REL TAB PO SCH (09:06)
[2021-05-23] MEDS: cefTRIAXone SODIUM 1,000 MG in DEXTROSE 5% 50 ML IV SCH (09:06)
[2021-05-23] MEDS: BETHANECHOL CHL 25 MG TAB PO SCH ×2 (09:06→20:32)
--- NOTE | 2021-05-23 13:58 | Hospitalist Progress Note ---
Date of Service May 23, 2021 Assessment & Plan (1) UTI (urinary tract infection): Plan: Cont Rocephin as patient is not tolerating PO. When more reliably tolerating, may de-escalate to treat Citrobacter UTI. (2) Candidal intertrigo: Plan: groin rash consistent with fungal etiology-cont Nystatin powder. (3) Cerebral palsy: Plan: functional quadriplegia. Nonverbal at baseline. Was eating yesterday and not so much today--will cont to monitor for fluctuations in clinical picture. (4) Paroxysmal SVT (supraventricular tachycardia): Plan: Cont Toprol XL per home regimen. (5) Neurogenic bladder: Plan: Bethanechol per home regimen. (6) DVT prophylaxis: Plan: Lovenox Full Code Dispo-to rehab/H. Oma Servin DO [facility] [address] Hospitalist Admission and Anticipated Discharge Date Admission Date: May 18, 2021 Subjective 61 yo cerebral palsy patient who is nonverbal with functional quadriplegia was found disheveled at home and unable to be cared for. Workup revealed a UTI for which is he is taking antibiotics. Today he is despondent and lethargic. He doesn't respond to my prompts or stimulation although his eyes are somewhat open. Per CNAs, he wouldn't eat for them today compared to yesterday when he ate very well. Patient is nonverbal and not responsive so ROS is otherwise unobtainable. Review of Systems Review of Systems: cannot obtain 2/2 nonverbal and lethargic. Physical Exam Physical Exam: CONSTITUTIONAL: WNWD, vitals as above, generally lethargic and nonresponsive. EYES: normal conjunctivae, no scleral icterus ENT: external ear and nose normal, MMM RESPIRATORY: clear to auscultation bilaterally, no crackles, rales or wheezes, normal respiratory effort -very limited exam as patient was not following commands and would not move around to help reposition for auscultation. CARDIOVASCULAR: regular rate and rhythm, S1 and 2 heard without murmurs, gallops or rubs, no JVD, no peripheral edema GASTROINTESTINAL: soft, nontender, nondistended. MUSCULOSKELETAL: lethargic and nonresponsive, could not assess SKIN: warm and dry NEUROLOGIC: lethargic and nonresponsive, could not assess Results & Data Results & Data ([facility]) Vital Signs (Past 12 Hours) Vital Signs Temp Pulse Pulse Resp BP Pulse Ox 05/23/21 11:40 37.1 C 96 H 16 137/90 96 05/23/21 08:20 36.6 C 112 H 16 146/87 H 95 05/23/21 07:37 111 H 05/23/21 04:56 36.7 C 105 H 18 140/85 91 05/23/21 03:29 103 H Laboratory Results Short CBC 05/23/21 Range/Units 07:33 WBC 10.63 (4.8-10.8) K/uL Hgb 12.3 L (14.0-18.0) g/dL Hct 36.5 L (42-52) % Plt Count 258 (130-400) K/uL BMP 05/23/21 07:33 Sodium 140 Potassium 3.4 L Chloride 109 H Carbon Dioxide 27 BUN 15 Creatinine 0.47 L Glucose 100 H Calcium 8.2 L Liver Function 05/23/21 Range/Units 07:33 Total Bilirubin 0.3 (0.2-1) mg/dl AST 21 (15-37) U/L ALT 15 (12-78) U/L Alkaline Phosphatase 71 (45-117) U/L Albumin 2.6 L (3.4-5.0) gm/dl Medications Administered Current Inpatient Medications Acetaminophen (Acetaminophen 325 Mg Tab) 650 mg PO Q4H PRN PRN Reason: Pain or Fever Stop: 06/18/21 00:46 Bethanechol Chloride (Bethanechol Chl 25 Mg Tab) [address] [facility] Stop: 06/18/21 00:46 Last Admin: 05/23/21 09:06 Dose: 25 mg Documented by: Enoxaparin Sodium (Enoxaparin Inj 40 Mg/0.4 Ml Syr) 40 mg SQ Q24H [facility] Stop: 06/18/21 05:59 Last Admin: 05/23/21 06:11 Dose: 40 mg Documented by: Ceftriaxone Sodium 1,000 mg/ (Dextrose) 50 mls @ 100 mls/hr IV Q24H [facility]; Protocol Stop: 05/24/21 07:59 Last Infusion: 05/23/21 09:36 Dose: Infused Documented by: Metoprolol Succinate (Metoprolol Succ 50mg Ext Rel Tab) [address] [facility] Stop: 06/18/21 08:59 Last Admin: 05/23/21 09:06 Dose: 50 mg Documented by: Nystatin (Nystatin Powder 15gm Btl) 1 appln EXT TID PRN PRN Reason: affected skin folds Stop: 06/18/21 00:46 Last Admin: 05/19/21 08:56 Dose: 1 appln Documented by: Trazodone HCl (Trazodone Hcl 50 Mg Tab) 50 mg PO BID PRN PRN Reason: Sleep Stop: 06/18/21 00:46 (1) UTI (urinary tract infection) Hematuria presence: without hematuria Urinary tract infection type: acute cystitis Qualified Code(s): N30.00 - Acute cystitis without hematuria (2) Cerebral palsy Cerebral palsy type: unspecified type Qualified Code(s): G80.9 - Cerebral palsy, unspecified
[2021-05-24] MEDS: ENOXAPARIN INJ 40 MG/0.4 ML SYR SQ SCH (06:27)
[2021-05-24] MEDS: METOPROLOL SUCC 50MG EXT REL TAB PO SCH (09:35)
[2021-05-24] MEDS: BETHANECHOL CHL 25 MG TAB PO SCH ×2 (09:36→22:10)
--- NOTE | 2021-05-24 17:08 | Hospitalist Progress Note ---
Date of Service May 24, 2021 Assessment & Plan (1) UTI (urinary tract infection): Plan: Cont Rocephin as patient is not tolerating PO reliably. When more reliably tolerating, may de-escalate to treat Citrobacter UTI. h/o neurogenic bladder at baseline. Will check with family on the baseline need for intermittent straight cathing, as no records are available at this time. (2) Candidal intertrigo: Plan: groin rash consistent with fungal etiology-cont Nystatin powder. (3) Cerebral palsy: Plan: functional quadriplegia. Nonverbal at baseline. Tried to reach sister by phone to help understand his baseline but unavailable at this time. His father is in the hospital. My understanding his mother is also ill. Will try to contact sister again in the morning. IVF overnight for support. Cont to encourage activity and interaction, especially encourage PO intake. (4) Paroxysmal SVT (supraventricular tachycardia): Plan: Cont Toprol XL per home regimen. (5) Neurogenic bladder: Plan: Bethanechol per home regimen. With need for straight cath overnight, will schedule bladder scan checks to q6h. Low urine output/low PO intake today so will give a couple bags of IVF overnight. (6) DVT prophylaxis: Plan: Lovenox Full Code Dispo-to rehab/[facility] after the weekend. Oma Servin DO [facility] Hospitalist Admission and Anticipated Discharge Date Admission Date: May 18, 2021 Subjective 61 yo cerebral palsy patient who is nonverbal with functional quadriplegia was found disheveled at home and unable to be cared for. Workup revealed a UTI for which is he is taking antibiotics. Today he is a little brighter in disposition. Very minimal PO intake today. Required straight cath overnight for 550cc retained urine and min urine output into condom catheter today. Review of Systems Review of Systems: ROS cannot be obtained as patient has impaired ability to communicate and is nonverbal. Physical Exam Physical Exam: CONSTITUTIONAL: WNWD, vitals as above, generally nonresponsive. Doesn't follow commands. Lays with eyes closed mostly. Cannot track me with his eyes and doesn't seem to connect nonverbally. EYES: normal conjunctivae, no scleral icterus ENT: external ear and nose normal, MMM RESPIRATORY: clear to auscultation bilaterally, no crackles, rales or wheezes, normal respiratory effort -very limited exam as patient was not following commands and would not move around to help reposition for auscultation. CARDIOVASCULAR: regular rate and rhythm, S1 and 2 heard without murmurs, gallops or rubs, no JVD, no peripheral edema GASTROINTESTINAL: soft, nontender, nondistended. MUSCULOSKELETAL: lethargic and nonresponsive, could not assess SKIN: warm and dry NEUROLOGIC: lethargic and nonresponsive, could not assess Results & Data Results & Data ([facility]) Vital Signs (Past 12 Hours) Vital Signs Temp Pulse Pulse Resp BP Pulse Ox 05/24/21 15:07 99 H 05/24/21 14:44 37.1 C 98 H 20 132/80 95 05/24/21 11:23 36.6 C 89 20 114/76 96 05/24/21 07:17 36.8 C 93 H 20 130/87 98 05/24/21 07:00 78 Medications Administered Current Inpatient Medications Acetaminophen (Acetaminophen 325 Mg Tab) 650 mg PO Q4H PRN PRN Reason: Pain or Fever Stop: 06/18/21 00:46 Bethanechol Chloride (Bethanechol Chl 25 Mg Tab) 25 mg PO BID [facility] Stop: 06/18/21 00:46 Last Admin: 05/24/21 09:36 Dose: 25 mg Documented by: Enoxaparin Sodium (Enoxaparin Inj 40 Mg/0.4 Ml Syr) 40 mg SQ Q24H [facility] Stop: 06/18/21 05:59 Last Admin: 05/24/21 06:27 Dose: 40 mg Documented by: Metoprolol Succinate (Metoprolol Succ 50mg Ext Rel Tab) 50 mg PO DAILY [facility] Stop: 06/18/21 08:59 Last Admin: 05/24/21 09:35 Dose: 50 mg Documented by: Nystatin (Nystatin Powder 15gm Btl) 1 appln EXT TID PRN PRN Reason: affected skin folds Stop: 06/18/21 00:46 Last Admin: 05/19/21 08:56 Dose: 1 appln Documented by: Trazodone HCl (Trazodone Hcl 50 Mg Tab) 50 mg PO BID PRN PRN Reason: Sleep Stop: 06/18/21 00:46 (1) UTI (urinary tract infection) Hematuria presence: without hematuria Urinary tract infection type: acute cystitis Qualified Code(s): N30.00 - Acute cystitis without hematuria (2) Cerebral palsy Cerebral palsy type: unspecified type Qualified Code(s): G80.9 - Cerebral palsy, unspecified
[2021-05-24] MEDS ORDERED: D5W AND NSS 1,000 ML IV SCH (19:00)
[2021-05-24 23:15] LABS: BUN Creatinine Ratio 23.2 (10-20); Calcium 8.3 mg/dl (8.5-10.1); Creatinine Clr Calc Pharmacy 126.3 ml/min; Est GFR (African American) 126.7 ml/min; Est GFR (Non-African American) 109.3 ml/min; Potassium 3.3 mmol/L (3.5-5.1)
[2021-05-25] MEDS ORDERED: FUROSEMIDE 20 MG in SYRINGE 0 ML IV ONE (00:57)
[2021-05-25] MEDS ORDERED: POTASSIUM CHLORIDE CRTAB 20 MEQ TABCR PO STA (00:57)
--- NOTE | 2021-05-25 00:58 | Communication Note ---
Date of Service: May 25, 2021 Notified by RN of poor urine output, patient bladder scanned for 330 cc. Patient third spacing in both lower extremities with grade 3 pitting pedal edema as per RN. Hold crystalloid for now given third spacing Lasix albumin 1 dose Will relay to AM provider.
[2021-05-25] MEDS ORDERED: FUROSEMIDE 40 MG/4 ML VIAL IV ONE (01:00)
[2021-05-25] MEDS: ALBUMIN 25% 12.5 GM/50 ML VIAL IV SCH ×2 (01:21→03:19)
[2021-05-25] MEDS: ENOXAPARIN INJ 40 MG/0.4 ML SYR SQ SCH (06:03)
[2021-05-25] MEDS: METOPROLOL SUCC 50MG EXT REL TAB PO SCH (08:52)
[2021-05-25] MEDS: BETHANECHOL CHL 25 MG TAB PO SCH ×2 (08:52→21:28)
[2021-05-25] MEDS ORDERED: NYSTATIN POWDER 15GM BTL EXT PRN (10:21)
[2021-05-25] MEDS: KETOCONAZOLE 2% CR 15 GM TUBE EXT SCH (12:38)
[2021-05-25] MEDS: DESONIDE CR 15 GM TUBE EXT SCH ×2 (12:38→21:29)
[2021-05-25] MEDS ORDERED: NYSTATIN POWDER 15GM BTL EXT SCH (14:00)
--- NOTE | 2021-05-25 16:08 | Hospitalist Progress Note ---
Date of Service May 25, 2021 Assessment & Plan (1) UTI (urinary tract infection): Plan: Citrobacter UTI. Completed 5-day course of Rocephin. Has a history of neurogenic bladder at baseline however per sister he does not require intermittent catheterization at home. Although output was limited yesterday, p.o. input was also limited. After IV fluids overnight he has urinated more reliably today. Consider rechecking urine for test of cure. (2) Seborrheic dermatitis: Plan: Underwent a shave of all facial hair with residual erythematous areas. Patient likely has seborrheic dermatitis of the face. We'll start with mild steroid to clean dry skin and can move to ketoconazole after 2 weeks. (3) Candidal intertrigo: Plan: groin rash consistent with fungal etiology-ordered daily cleansing with drying of area as much as able. Incontinence of urine may be contributing to this issue. Ordered Ketoconazole cream to clean dry skin and use nystatin powder as needed to keep area dry. (4) Cerebral palsy: Plan: functional quadriplegia. Nonverbal at baseline. Cont to encourage activity and interaction, especially encourage PO intake. Placement at discharge. Discussed plan with his sister by phone yesterday. (5) Paroxysmal SVT (supraventricular tachycardia): Plan: Cont Toprol XL per home regimen. (6) Neurogenic bladder: Plan: Bethanechol per home regimen. Plan as above. (7) DVT prophylaxis: Plan: Lovenox Full Code [facility] rehab[facility] after the weekend. [facility] and Anticipated Discharge Date Admission Date: May 18, 2021 Subjective 61 yo cerebral palsy patient who is nonverbal with functional quadriplegia was found disheveled at home and unable to be cared for. Workup revealed a UTI for which is he completed a course of antibiotics. Today he is a little brighter in disposition. Tolerating PO. IVF given overnight were stopped, however, his urine output increased into [place] catheter. He is nonverbal so cannot obtain ROS. Review of Systems Review of Systems: cannot obtain ROS as patient is nonverbal with cerebral palsy Physical Exam Physical Exam: CONSTITUTIONAL: WNWD, vitals as above, generally nonresponsive. Doesn't follow commands. Lays with eyes closed mostly-opens eyes and is tracking me today. EYES: normal conjunctivae, no scleral icterus ENT: external ear and nose normal, MMM RESPIRATORY: clear to auscultation bilaterally, no crackles, rales or wheezes, normal respiratory effort -very limited exam as patient was not following commands and would not move around to help reposition for auscultation. CARDIOVASCULAR: regular rate and rhythm, S1 and 2 heard without murmurs, gallops or rubs, no JVD, no peripheral edema GASTROINTESTINAL: soft, nontender, nondistended. : external [place] catheter in place. MUSCULOSKELETAL: WNWD, no clear definite movements and restriction of passive movement of his limbs. SKIN: warm and dry, he underwent a shave of facial hair-has several spots with perioral erythema and some dry scaly skin. Has some erythema and irritation in intertriginous areas (groin). NEUROLOGIC: appears at his baseline. Results & Data Results & Data ([facility]) Vital Signs (Past 12 Hours) Vital Signs Temp Pulse Resp BP BP Pulse Ox Pulse Ox 05/25/21 15:16 36.9 C 103 H 20 130/81 95 05/25/21 12:09 37.1 C 109 H 20 139/84 94 05/25/21 07:12 37.4 C 107 H 20 120/73 95 05/25/21 05:02 96 Laboratory Results BMP 05/24/21 22:44 Sodium 139 Potassium 3.3 L Chloride 106 Carbon Dioxide 33 H BUN 14 Creatinine 0.60 Glucose 105 H Calcium 8.3 L Medications Administered Current Inpatient Medications Acetaminophen (Acetaminophen 325 Mg Tab) 650 mg PO Q4H PRN PRN Reason: Pain or Fever Stop: 06/18/21 00:46 Bethanechol Chloride (Bethanechol Chl 25 Mg Tab) 25 mg PO BID [facility] Stop: 06/18/21 00:46 Last Admin: 05/25/21 08:52 Dose: 25 mg Documented by: Desonide (Desonide Cr 15 Gm Tube) 1 appln EXT BID [facility] Stop: 06/24/21 10:14 Last Admin: 05/25/21 12:38 Dose: 1 appln Documented by: Enoxaparin Sodium (Enoxaparin Inj 40 Mg/0.4 Ml Syr) 40 mg SQ Q24H [facility] Stop: 06/18/21 05:59 Last Admin: 05/25/21 06:03 Dose: 40 mg Documented by: Ketoconazole (Ketoconazole 2% Cr 15 Gm Tube) 1 appln EXT DAILY [facility] Stop: 06/04/21 10:29 Last Admin: 05/25/21 12:38 Dose: 1 appln Documented by: Metoprolol Succinate (Metoprolol Succ 50mg Ext Rel Tab) 50 mg PO DAILY [facility] Stop: 06/18/21 08:59 Last Admin: 05/25/21 08:52 Dose: 50 mg Documented by: Nystatin (Nystatin Powder 15gm Btl) 1 appln EXT TID PRN PRN Reason: moisture in intertriginous are Stop: 06/24/21 13:59 Trazodone HCl (Trazodone Hcl 50 Mg Tab) 50 mg PO BID PRN PRN Reason: Sleep Stop: 06/18/21 00:46 (1) UTI (urinary tract infection) Hematuria presence: without hematuria Urinary tract infection type: acute cystitis Qualified Code(s): N30.00 - Acute cystitis without hematuria (2) Cerebral palsy Cerebral palsy type: unspecified type Qualified Code(s): G80.9 - Cerebral palsy, unspecified
[2021-05-25 17:54] LABS: Appearance Urine Clear (Clear); Bacteria Urine Automated Negative (Negative); Bilirubin Urine Negative (Negative); Blood Urine 1+ (Negative); Cast Urine Automated 0 /lpf (0-5); Color Urine Yellow; Epithelial Cell Urine Auto 0-5 /lpf (0-5); Glucose Urine UA Negative (Negative); Ketones Urine 1+ (Negative); Leukocyte Esterase Urine Negative (Negative); Nitrite Urine Negative (Negative); Protein Urine Negative (Negative); Specific Gravity Urine 1.015 (1.000-1.030); Urobilinogen Urine Negative (Negative); pH Urine 6.5 (4.5-7.5)
[2021-05-26] MEDS: ENOXAPARIN INJ 40 MG/0.4 ML SYR SQ SCH (05:26)
[2021-05-26] MEDS: KETOCONAZOLE 2% CR 15 GM TUBE EXT SCH (08:52)
[2021-05-26] MEDS: METOPROLOL SUCC 50MG EXT REL TAB PO SCH (08:52)
[2021-05-26] MEDS: BETHANECHOL CHL 25 MG TAB PO SCH ×2 (08:52→20:52)
[2021-05-26] MEDS: DESONIDE CR 15 GM TUBE EXT SCH ×2 (08:53→20:53)
--- NOTE | 2021-05-26 14:22 | Hospitalist Progress Note ---
Date of Service May 26, 2021 Assessment & Plan (1) UTI (urinary tract infection): Plan: Citrobacter UTI. Completed 5-day course of Rocephin. Has a history of neurogenic bladder at baseline however per sister he does not require intermittent catheterization at home. Although output was limited yesterday, p.o. input was also limited. UO decreased, will restart IVFs. (2) Seborrheic dermatitis: Plan: Underwent a shave of all facial hair with residual erythematous areas. Patient likely has seborrheic dermatitis of the face. We'll DC facial steroids (3) Candidal intertrigo: Plan: groin rash consistent with fungal etiology-ordered daily cleansing with drying of area as much as able. Incontinence of urine may be contributing to this issue. Ordered Ketoconazole cream to clean dry skin and use nystatin powder as needed to keep area dry. (4) Cerebral palsy: Plan: functional quadriplegia. Nonverbal at baseline. Cont to encourage activity and interaction, especially encourage PO intake. Placement at discharge. Discussed plan with his sister by phone yesterday. (5) Paroxysmal SVT (supraventricular tachycardia): Plan: Cont Toprol XL per home regimen. (6) Neurogenic bladder: Plan: Bethanechol per home regimen. Plan as above. (7) DVT prophylaxis: Plan: Lovenox Full Code Dispo-to rehab/[facility] after the weekend. Labs Checked Plan: ROS-offers no history Physical Exam Gen-NAD, Afebrile, non verbal, contracted Head-Anicteric Sclera Neck-No JVD, No Thyromegaly, No Masses, No LAD, No Bruits Lungs-Clear to Auscultation Bilaterally, No Rales, No Rhonchi, No Wheezing, No Crepitus Chest-No S4, +S1, +S2, No S3, No Murmurs, No Rubs, No Gallops, No Ectopy Abdomen-Soft, Bowel Sounds Present, Non Tender, Non Distended, No Hepatomegaly, No Splenomegaly, No Palpable Masses, No Rebound, No Rigidity, No Guarding Musculoskeletal-Functional Quad Extremities-contracted Nuero-Functional Quad Psych-CP Admission and Anticipated Discharge Date Admission Date: May 18, 2021 Subjective 61 yo cerebral palsy patient who is nonverbal with functional quadriplegia was found disheveled at home and unable to be cared for. Workup revealed a UTI for which is he completed a course of antibiotics. He offered no Hx to me today. IVF were stopped and his urine output is now decreased. Results & Data Results & Data ([facility]) Vital Signs (Past 12 Hours) Vital Signs Temp Pulse Resp BP Pulse Ox 05/26/21 06:35 36.6 C 91 H 14 107/73 95 (1) UTI (urinary tract infection) Hematuria presence: without hematuria Urinary tract infection type: acute cystitis Qualified Code(s): N30.00 - Acute cystitis without hematuria (2) Cerebral palsy Cerebral palsy type: unspecified type Qualified Code(s): G80.9 - Cerebral palsy, unspecified
[2021-05-26] MEDS: D5W AND 1/2NSS + 20MEQ KCL 20 MEQ/1,000 ML BAG IV SCH (15:17)
[2021-05-27] MEDS: D5W AND 1/2NSS + 20MEQ KCL 20 MEQ/1,000 ML BAG IV SCH ×2 (02:13→14:13)
[2021-05-27] MEDS: ENOXAPARIN INJ 40 MG/0.4 ML SYR SQ SCH (05:19)
[2021-05-27 07:54] LABS: Hematocrit (blood only) 35.8 % (42-52); Hemoglobin 11.9 g/dL (14.0-18.0); Mean Corpuscular Hemoglobin 29.4 pg (25-34); Mean Corpuscular Hgb Conc 33.2 g/dL (32-36); Mean Corpuscular Volume 88.4 fL (80-100); Mean Platelet Volume 8.7 fL (7.4-10.4); Platelet Count 279 K/uL (130-400); RDW Coefficient of Variation 13.7 % (11.5-14.5); RDW Standard Deviation 44.4 fL (36.4-46.3); Red Blood Count 4.05 M/uL (4.7-6.1); White Blood Count 7.61 K/uL (4.8-10.8)
[2021-05-27 08:23] LABS: Est GFR (African American) 138.8 ml/min; Potassium 3.7 mmol/L (3.5-5.1)
[2021-05-27 08:24] LABS: Albumin Level 2.6 gm/dl (3.4-5.0); BUN Creatinine Ratio 17.7 (10-20); Calcium 8.7 mg/dl (8.5-10.1); Creatinine Clr Calc Pharmacy 157.4 ml/min; Est GFR (Non-African American) 119.8 ml/min
[2021-05-27 08:26] LABS: Albumin Globulin Ratio 0.7 (0.9-2); Bilirubin,Total 0.2 mg/dl (0.2-1); Globulin 3.9 gm/dl (2.5-4.0); Total Protein 6.5 gm/dl (6.4-8.2)
[2021-05-27] MEDS: METOPROLOL SUCC 50MG EXT REL TAB PO SCH (08:49)
[2021-05-27] MEDS: BETHANECHOL CHL 25 MG TAB PO SCH (08:49)
[2021-05-27] MEDS: KETOCONAZOLE 2% CR 15 GM TUBE EXT SCH (08:50)
[2021-05-27] MEDS: DESONIDE CR 15 GM TUBE EXT SCH (08:50)
--- NOTE | 2021-05-27 11:34 | Hospitalist Progress Note ---
Date of Service May 27, 2021 Assessment & Plan (1) UTI (urinary tract infection): Plan: Citrobacter UTI. Completed 5-day course of Rocephin. Has a history of neurogenic bladder at baseline however per sister he does not require intermittent catheterization at home. Although output was limited yesterday, p.o. input was also limited. UO decreased, will restart IVFs. (2) Seborrheic dermatitis: Plan: Underwent a shave of all facial hair with residual erythematous areas. Patient likely has seborrheic dermatitis of the face. We'll DC facial steroids sec to atrophy risk (3) Candidal intertrigo: Plan: groin rash consistent with fungal etiology-ordered daily cleansing with drying of area as much as able. Incontinence of urine may be contributing to this issue. Ordered Ketoconazole cream to clean dry skin and use nystatin powder as needed to keep area dry. (4) Cerebral palsy: Plan: functional quadriplegia. Nonverbal at baseline. Cont to encourage activity and interaction, especially encourage PO intake. Placement at discharge. Discussed plan with his sister by phone yesterday. (5) Paroxysmal SVT (supraventricular tachycardia): Plan: Cont Toprol XL per home regimen. (6) Neurogenic bladder: Plan: Bethanechol per home regimen. Plan as above. (7) DVT prophylaxis: Plan: Lovenox Full Code Dispo-to rehab/[facility] after the weekend. Labs Checked Plan: ROS-offers no history Physical Exam Gen-NAD, Afebrile, non verbal, contracted Head-Anicteric Sclera Neck-No JVD, No Thyromegaly, No Masses, No LAD, No Bruits Lungs-Clear to Auscultation Bilaterally, No Rales, No Rhonchi, No Wheezing, No Crepitus Chest-No S4, +S1, +S2, No S3, No Murmurs, No Rubs, No Gallops, No Ectopy Abdomen-Soft, Bowel Sounds Present, Non Tender, Non Distended, No Hepatomegaly, No Splenomegaly, No Palpable Masses, No Rebound, No Rigidity, No Guarding Musculoskeletal-Functional Quad Extremities-contracted Nuero-Functional Quad Psych-CP Admission and Anticipated Discharge Date Admission Date: May 18, 2021 Subjective 61 yo cerebral palsy patient who is nonverbal with functional quadriplegia was found disheveled at home and unable to be cared for. Workup revealed a UTI for which is he completed a course of antibiotics. He offered no Hx to me today. IVF were stopped and his urine output is now decreased. Results & Data Results & Data ([facility]) Vital Signs (Past 12 Hours) Vital Signs Temp Pulse Resp BP Pulse Ox 05/27/21 07:55 36.7 C 80 16 120/81 95 05/27/21 00:17 36.3 C L 86 16 132/84 96 (1) UTI (urinary tract infection) Hematuria presence: without hematuria Urinary tract infection type: acute cystitis Qualified Code(s): N30.00 - Acute cystitis without hematuria (2) Cerebral palsy Cerebral palsy type: unspecified type Qualified Code(s): G80.9 - Cerebral palsy, unspecified
[2021-05-27] MEDS ORDERED: POLYETHYLENE (MIRALAX) 17 GM PACK PO PRN (12:41)
== END 2021-05-27 17:04 | DRG 689 ==
LOC: ED 14:00 → 2N 19:25 → SUATTDRO 19:25 → 2N 05-19 → 3N 05-26 02:17